=== PATIENT | male | born 1970 | race Caucasian/White ===

== ENCOUNTER 2024-02-03 06:42 | Emergency (ER) | payer SELFPAY ==
--- NOTE | 2024-02-03 08:06 | ER ---
Nurse's Notes [facility] Name: Jean Sun Age: 53 yrs Sex: Male : 1970 Arrival Date: 02/03/2024 Time: 06:42 Bed 6 Private MD: Diagnosis: Paresthesia of skin Presentation: 02/02 07:36 Chief complaint: Patient states: "It started off with pins and needles in my fingers ss tips and hands for the past 4 days and now it's a little numbness.". Coronavirus screen: Client denies travel out of the [place] in the last 14 days. Ebola Screen: Patient denies exposure to infectious person. Patient denies travel to an Ebola-affected area in the 21 days before illness onset. Initial Sepsis Screen: Does the patient meet any 2 criteria? No. Patient's initial sepsis screen is negative. Does the patient have a suspected source of infection? No. Patient's initial sepsis screen is negative. Risk Assessment: Do you want to hurt yourself or someone else? Patient reports no desire to harm self or others. Onset of symptoms is unknown. 07:36 Method Of Arrival: Ambulatory ss 07:36 Acuity: KELSEY 3 ss Triage Assessment: 07:47 General: Appears in no apparent distress. uncomfortable, Behavior is cooperative, bp appropriate for age, anxious. Pain: Complains of pain in right hand, left hand, right foot and left foot. EENT: No deficits noted. Neuro: Reports numbness in right hand, left hand, right foot and left foot. Cardiovascular: No deficits noted. Respiratory: No deficits noted. GI: No signs and/or symptoms were reported involving the gastrointestinal system. : No signs and/or symptoms were reported regarding the genitourinary system. Derm: No deficits noted. Musculoskeletal: No deficits noted. Historical: - Allergies: 07:38 SHELLFISH; ss - PMHx: 07:38 COPD; Fibromyalgia; ss - Immunization history:: Adult Immunizations up to date. - Infectious Disease History:: Denies. - Social history:: Smoking status: unknown. Screenin:47 [facility] ED Fall Risk Assessment (Adult) History of falling in the last 3 months, bp including since admission No falls in past 3 months (0 pts) Confusion or Disorientation No (0 pts) Intoxicated or Sedated No (0 pts) Impaired Gait No (0 pts) Mobility Assist Device Used No (0 pt) Altered Elimination No (0 pt) Score/Fall Risk Level 0 - 2 = Low Risk. Abuse screen: Denies threats or abuse. Denies injuries from another. Nutritional screening: No deficits noted. Tuberculosis screening: No symptoms or risk factors identified. Assessment: 07:47 General: SEE TRIAGE NOTE. bp Vital Signs: 07:36 BP 122 / 86; Pulse 71; Resp 16; Temp 97.6(TE); Pulse Ox 100% on R/A; Weight 70.31 kg; ss Height 5 ft. 7 in. ; Pain 10/10; 07:36 Body Mass Index 24.28 (70.31 kg, 170.18 cm) ss 07:36 Pain Scale: Adult ss ED Course: 06:43 Patient arrived in ED. gm2 07:06 Tiesha Zuniga MD is Attending Physician. gb1 07:38 Triage completed. ss 07:38 Arm band placed on right wrist. ss 07:40 Jacinto Mcbride, CLARY is Primary Nurse. bp 07:47 Patient has correct armband on for positive identification. bp 08:06 Michele Rodriguez MD is Referral Physician. gb1 08:16 No provider procedures requiring assistance completed. Patient did not have IV access bp during this emergency room visit. 08:17 Provided Education on: N/A. bp Administered Medications: No medications were administered Medication: 07:47 VIS not applicable for this client. bp Outcome: 08:06 Discharge ordered by . gb1 08:16 Discharged to home ambulatory, bp 08:16 Condition: stable 08:16 Discharge instructions given to patient, Instructed on discharge instructions, follow up and referral plans. Demonstrated understanding of instructions, follow-up care, 08:17 Patient left the ED. bp Signatures: Radha Gaona RN RN Jacinto Mcbride, CLARY RN bp Tiesha Zuniga MD MD gb1 Mariajose English gm2
--- NOTE | 2024-02-03 08:07 | EDPHYS ---
Physician Documentation [facility] Name: Jean Sun Age: 53 yrs Sex: Male : 1970 Arrival Date: 02/03/2024 Time: 06:42 Bed 6 Private MD: ED Physician Tiesha Zuniga HPI: 02/02 08:02 This 53 yrs old Male presents to ER via Ambulatory with complaints of Hand gb1 Pain, Weakness, Cough. 08:02 53-year-old male with history of fibromyalgia, COPD presents with weakness gb1 and numbness and tingling in both of his hands that started 30 days ago. Patient denies any difficulty with walking talking or any sort of facial droop. He came today because he is requesting a muscle relaxer, and a refill on his narcotic pain medicine.. Historical: - Allergies: 07:38 SHELLFISH; ss - PMHx: 07:38 COPD; Fibromyalgia; ss - Immunization history:: Adult Immunizations up to date. - Infectious Disease History:: Denies. - Social history:: Smoking status: unknown. Exam: 08:02 Constitutional: This is a well developed, well nourished patient who is awake, alert, gb1 and in no acute distress. Head/Face: Normocephalic, atraumatic. Eyes: Pupils equal round and reactive to light, extra-ocular motions intact. Lids and lashes normal. Conjunctiva and sclera are non-icteric and not injected. Cornea within normal limits. Periorbital areas with no swelling, redness, or edema. ENT: Nares patent. No nasal discharge, no septal abnormalities noted. Tympanic membranes are normal and external auditory canals are clear. Oropharynx with no redness, swelling, or masses, exudates, or evidence of obstruction, uvula midline. Mucous membranes moist. Neck: Trachea midline, no thyromegaly or masses palpated, and no cervical lymphadenopathy. Supple, full range of motion without nuchal rigidity, or vertebral point tenderness. No Meningismus. Chest/axilla: Normal chest wall appearance and motion. Nontender with no deformity. No lesions are appreciated. Cardiovascular: Regular rate and rhythm with a normal S1 and S2. No gallops, murmurs, or rubs. Normal PMI, no JVD. No pulse deficits. Respiratory: Lungs have equal breath sounds bilaterally, clear to auscultation and percussion. No rales, rhonchi or wheezes noted. No increased work of breathing, no retractions or nasal flaring. Abdomen/GI: Soft, non-tender, with normal bowel sounds. No distension or tympany. No guarding or rebound. No evidence of tenderness throughout. Skin: Warm, dry with normal turgor. Normal color with no rashes, no lesions, and no evidence of cellulitis. MS/ Extremity: Pulses equal, no cyanosis. Neurovascular intact. Full, normal range of motion. Vital Signs: 07:36 BP 122 / 86; Pulse 71; Resp 16; Temp 97.6(TE); Pulse Ox 100% on R/A; Weight 70.31 kg; ss Height 5 ft. 7 in. ; Pain 10/10; 07:36 Body Mass Index 24.28 (70.31 kg, 170.18 cm) ss 07:36 Pain Scale: Adult ss MDM: 07:40 Medical Screening Exam initiated gb1 08:02 Data reviewed: vital signs, nurses notes. ED course: 53-year-old male with gb1 history of COPD and fibromyalgia here with bilateral hand paresthesias for 30 days. I doubt TIA or CVA. Patient is able to do fine motor movements just text on his phone. He is requesting a refill of his narcotic pain medication which I declined to do since he is still supposed to currently have medication from his most recent prescription. Pt with multiple complaints today, no emergency condition found.. Administered Medications: No medications were administered Disposition Summary: 02/03/24 08:06 Discharge Ordered Notes: Location: Home gb1 Condition: Stable gb1 Diagnosis - Paresthesia of skin gb1 Followup: gb1 - With: Private Physician - When: - Reason: Recheck today's complaints Followup: gb1 - With: Michele Rodriguez MD - When: 1 week - Reason: If symptoms return Discharge Instructions: - Discharge Summary Sheet gb1 - Paresthesia, [id number] gb1 Forms: - Medication Reconciliation Form gb1 - Antibiotic Education gb1 - Prescription Opioid Use gb1 - Patient Portal Instructions gb1 - Leadership Thank You Letter gb1 Signatures: Radha Gaona RN RN ss Jacinto Mcbride RN RN bp Nadia, Tiesha, MD MD gb1
[2024-02-03 11:25] VITALS: BP 122/86; TEMP 97.6; O2SAT 100
== END 2024-02-03 08:17 | disposition home or self-care (01) ==
LOC: ER 06:42
DX: R20.2 Paresthesia of skin (principal); R53.1 Weakness; R05.9 Cough, unspecified; J44.9 Chronic obstructive pulmonary disease, unspecified
CPT/HCPCS: 99282